=== PATIENT | female | born 1990 | race Caucasian/White ===

== ENCOUNTER 2016-11-22 00:32 | Emergency (ER) | payer OTHER ==
[2016-11-22] MEDS ORDERED: predniSONE 20 MG TABLET (UD) PO ONE (00:54)
[2016-11-22] MEDS ORDERED: ALBUTEROL SO4 2.5/IPRATROPIUM 0.5 INH SOL 3 ML VIAL.NEB. NEB ONE ×3 (00:54→01:27)
--- NOTE | 2016-11-22 00:57 | PDOC ---
History of Present Illness - General Chief Complaint: Asthma Stated Complaint: ASTHMA Time Seen by Provider: 11/22/16 00:48 History Source: Patient - History of Present Illness Initial Comments: 11/22/16 00:55 26 year old female c/o wheezing and SOB since 8 pm. last asthma exacerbation 7 years ago, patient reports currently not on any medications. reports no relief in symptoms with Benadryl dose at home prior to arrival. denies ICU admission/ intubation for asthma. + admission as a child for asthma Past History - Past Medical History Allergies/Adverse Reactions: Allergies Allergy/AdvReac Type Severity Reaction Status Date / Time No Known Allergies Allergy Verified 11/22/16 00:58 Home Medications: Ambulatory Orders Albuterol Sulfate Inhaler - [Ventolin HFA Inhaler -] 1 - 2 inh PO Q4H PRN #1 inhaler 11/22/16 Prednisone [Prednisone 50 MG TABLETS] 50 mg PO DAILY #4 tablet 11/22/16 Asthma: Yes Review of Systems - Review of Systems Able to Perform ROS?: Yes Is the patient limited Italian proficient: No Constitutional: No: Symptoms Reported, See HPI, Chills, Diaphoresis, Fever, Loss of Appetite, Malaise, Night Sweats, Weakness, Weight Stable, Unintentional Wgt. Loss, Unexplained wgt Loss, Other HEENTM: No: Symptoms Reported, See HPI, Eye Pain, Blurred Vision, Tearing, Recent change in vision, Double Vision, Cataracts, Ear Pain, Ocular Prothesis, Ear Discharge, Nose Pain, Nose Congestion, Tinnitus, Nose Bleeding, Hearing Loss , Throat Pain, Throat Swelling, Mouth Pain, Dental Problems, Difficulty Swallowing, Mouth Swelling, Other Respiratory: Yes: Cough, Shortness of Breath, Wheezing. No: Symptoms reported, See HPI, Orthopnea, SOB with Exertion, SOB at Rest, Stridor, Productive cough, Hemoptysis, Other Cardiac (ROS): No: Symptoms Reported, See HPI, Chest Pain, Edema, Irregular Heart Rate, Lightheadedness, Palpitations, Syncope, Chest Tightness, Other ABD/GI: No: Symptoms Reported, See HPI, Abdominal Distended, Abd. Pain w/ defecation, Blood Streaked Bowels, Constipated, Diarrhea, Difficulty Swallowing , Nausea, Poor Appetite, Poor Fluid Intake, Rectal Bleeding, Vomiting, Indigestion, Abdominal cramping, Tarry Stools, Other *Physical Exam - Vital Signs 11/22/16 01:56 Vital Signs Temperature 97.8 F 11/22/16 00:58 Pulse Rate 67 11/22/16 00:58 Respiratory Rate 16 11/22/16 00:58 Blood Pressure 108/72 11/22/16 00:58 O2 Sat by Pulse Oximetry (%) 100 11/22/16 00:58 - Physical Exam General Appearance: Yes: Appropriately Dressed HEENT: negative: EOMI, DAISY, Normal ENT Inspection, Normal Voice, Symmetrical, TMs Normal, Pharynx Normal, Pale Conjunctivae, Photophobia, Scleral Icterus (R) , Scleral Icterus (L), Muffled/Hoarse voice, Pharyngeal Erythema, Tonsillar Exudate, Tonsillar Erythema, Nasal Congestion, Rhinorrhea, Sinus Tenderness, Orbits, Hearing Decreased, Hearing Grossly Normal, TM Bulging, TM Dull, TM Erythema, Lesions, [place], Excessive drooling, Thrush, Other Neck: negative: Tender, Trachea midline, Normal Thyroid, Rigid, Supple, Carotid bruit, Decreased range of motion, Stridor, Lymphadenopathy (R), Lymphadenopathy (L), Rigidity, Tender lateral, Tender midline, Thyromegaly, Other Respiratory/Chest: positive: Decreased Breath Sounds, Wheezing. negative: Chest Tender, Lungs Clear, Normal Breath Sounds, Respiratory Distress, Accessory Muscle Use, Labored Respiration, Rapid RR, Paradoxal Breathing, Crackles, Rales, Rhonchi, Stridor, Hyperresonant, Dullness, Plerual Rub, Other Cardiovascular: positive: Regular Rate, Tachycardia Gastrointestinal/Abdominal: positive: Normal Bowel Sounds, Soft Extremity: positive: Normal Capillary Refill, Normal Inspection, Normal Range of Motion Integumentary: positive: Normal Color, Dry, Warm Neurologic: positive: Fully Oriented, Alert, Normal Mood/Affect Progress Note - Progress Note Progress Note: A: astham exacerbation P: duoneb prednisone Medical Decision Making - Medical Decision Making 11/22/16 01:57 improved aeration. will d/c home with prn albuterol and prednisone *DC/Admit/Observation/Transfer Diagnosis at time of Disposition: Asthma exacerbation Qualifiers: Asthma severity: mild Asthma persistence: intermittent Qualified Code(s): J45.21 - Mild intermittent asthma with (acute) exacerbation; J45.21 - Mild intermittent asthma with (acute) exacerbation; J45.21 - Mild intermittent asthma with (acute) exacerbation - Discharge Dispostion Disposition: HOME - Prescriptions Prescriptions: Prednisone [Prednisone 50 MG TABLETS] 50 mg PO DAILY #4 tablet Albuterol Sulfate Inhaler - [Ventolin HFA Inhaler -] 1 - 2 inh PO Q4H PRN #1 inhaler PRN Reason: Wheezing - Patient Instructions Printed Discharge Instructions: Asthma -- Adult
[2016-11-22 01:00] VITALS: BP 108/72; PULSE 67; TEMP 97.8; BMI 26.5
[2016-11-22] MEDS ORDERED: predniSONE 10 MG TABLET (UD) ONE (01:09)
--- NOTE | 2016-11-22 01:13 | PDOC ---
*Physical Exam - Vital Signs Last Vital Signs Temp Pulse Resp BP Pulse Ox 97.8 F 67 16 108/72 100 11/22/16 00:58 11/22/16 00:58 11/22/16 00:58 11/22/16 00:58 11/22/16 00:58 Medical Decision Making - Medical Decision Making 11/22/16 01:12 agree with care from GEORGE Soni *DC/Admit/Observation/Transfer Diagnosis at time of Disposition: Asthma exacerbation - Prescriptions Prescriptions: Prednisone [Prednisone 50 MG TABLETS] 50 mg PO DAILY #4 tablet Albuterol Sulfate Inhaler - [Ventolin HFA Inhaler -] 1 - 2 inh PO Q4H PRN #1 inhaler PRN Reason: Wheezing - Patient Instructions Printed Discharge Instructions: Asthma -- Adult
== END 2016-11-22 02:17 | disposition home or self-care (01) ==
LOC: JER 00:32
PROC: 3E0F7GC Introduction of Other Therapeutic Substance into Respiratory Tract, Via Natural or Artificial Opening (ICD-10-PCS; principal; 2016-11-22)
DX: J45.21 Mild intermittent asthma with (acute) exacerbation (principal)
CPT/HCPCS: 99281-25